=== PATIENT | female | born 1970 | race Asian ===

== ENCOUNTER 2017-07-10 16:49 | Emergency (ER) | payer SELFPAY ==
[~2017-07-10] VITALS: Ht 160 cm; Wt 60.3 kg
[2017-07-10] MEDS ORDERED: SODIUM CHLORIDE 0.9% 1,000ML IVBOLUS ONE (17:00)
[2017-07-10] MEDS ORDERED: ONDANSETRON 2MG/ML, 2ML IVPush ONE (17:00)
[2017-07-10] MEDS ORDERED: PANTOPRAZOLE 40 MG IV IVPush ONE (17:00)
[2017-07-10] MEDS ORDERED: SODIUM CHLORIDE FLUSH 10ML SYR IVF ONE (17:00)
[2017-07-10 17:37] LABS: HEMATOCRIT 40.5 % (34.6-47.8); HEMOGLOBIN 13.9 g/dL (11.7-16.4); WHITE BLOOD COUNT 6.6 x10^3/uL (3.4-10)
[2017-07-10 17:48] LABS: ASPARTATE AMINO TRANSFERASE 17 U/L (15-37); BLOOD UREA NITROGEN 9 mg/dL (7-18)
[2017-07-10 18:16] VITALS: BP 108/64
[2017-07-10] MEDS ORDERED: ONDANSETRON ODT 4 MG PO ONE (18:30)
[2017-07-10] MEDS ORDERED: ONDANSETRON ODT 4 MG ONE (18:41)
[2017-07-10] MEDS ORDERED: FAMOTIDINE 20 MG TABLET PO ONE (19:00)
[2017-07-10] MEDS ORDERED: FAMOTIDINE 20 MG TABLET ONE (19:01)
== END 2017-07-10 19:12 | disposition home or self-care (01) ==
LOC: ED 19:06
DX: K29.70 Gastritis, unspecified, without bleeding (principal)
CPT/HCPCS: 36415; 80053; 81003; 83690; 85025; 99284